=== PATIENT | female | born 2005 | race Caucasian/White ===

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

== ENCOUNTER → 2023-07-15 | Outpatient (CLI) | payer BC ==
[~2023-07-15] MED LIST changes: +DOXY-444 PO; +EMTR1TAB16 PO; +HYDR-643; +LAMO100T68; +METR-265 PO; +[UNRECOGNIZED DRUG - CODE] PO
== END ==
LOC: M RAD 17:29
PROVIDERS: ATTEND Physician Assistant
DX: M25.511 Pain in right shoulder (principal)

== ENCOUNTER → 2023-10-31 | Outpatient (REF) | payer BC | LOC: M LAB REF 17:54 | PROVIDERS: ATTEND Physician Assistant | DX: R30.0 Dysuria (principal) ==

== ENCOUNTER 2024-08-14 18:22 | Emergency (ER) | payer BC ==
[~2024-08-14] VITALS: Ht 157.5 cm; Wt 65.8 kg
[~2024-08-14 18:22] MED LIST changes: +DOXY-440 PO; -DOXY-444 PO; +ONDA-282 PO; -ONDA4TAB6 PO
[2024-08-14 18:27] VITALS: BP 111/58; TEMP 98.9; O2SAT 96
== END 2024-08-14 19:16 | disposition left against medical advice (07) ==
LOC: M ED 18:22
DX: Z53.21 Procedure and treatment not carried out due to patient leaving prior to being seen by health care provider (principal)

== ENCOUNTER → 2024-09-06 | Outpatient (CLI) | payer BC ==
[~2024-09-06] MED LIST changes: -CYPR4TA; +CYPR4TAB36
== END ==
LOC: M RAD 14:34
PROVIDERS: ATTEND Physician Assistant Medical
DX: R06.02 Shortness of breath (principal); R05.9 Cough, unspecified

== ENCOUNTER 2024-11-12 15:12 | Emergency (ER) | payer BC ==
[~2024-11-12] VITALS: Ht 157.5 cm; Wt 60.9 kg
[2024-11-12] MEDS ORDERED: LAMO150T3 (15:23)
[2024-11-12] MEDS ORDERED: DROS4TAB (15:23)
[2024-11-12] MEDS: IBUPROFEN 600MG TAB PO ONE (16:24)
[2024-11-12] MEDS ORDERED: KETOROLAC 30 MG/ML 1ML VIAL IM ONE (17:20)
[2024-11-12] MEDS: PERCOCET 5MG/325MG TAB PO ONE (17:35)
[2024-11-12 19:03] VITALS: BP 122/67; TEMP 98.8; O2SAT 98
== END 2024-11-12 19:28 | disposition home or self-care (01) ==
LOC: M ED 15:12
DX: S83.92XA Sprain of unspecified site of left knee, initial encounter (principal); X58.XXXA Exposure to other specified factors, initial encounter; Y92.9 Unspecified place or not applicable; Y93.89 Activity, other specified; Y99.9 Unspecified external cause status; Q79.60 Ehlers-Danlos syndrome, unspecified; G90.A Postural orthostatic tachycardia syndrome [POTS]; R51.9 Headache, unspecified; R56.9 Unspecified convulsions; Z88.0 Allergy status to penicillin; Z88.2 Allergy status to sulfonamides; Z88.5 Allergy status to narcotic agent; Z91.89 Other specified personal risk factors, not elsewhere classified

== ENCOUNTER 2025-02-17 09:20 | Emergency (ER) | payer BC ==
[~2025-02-17] VITALS: Ht 157.5 cm; Wt 65.9 kg
[~2025-02-17 09:20] MED LIST changes: +DROS4TAB
[2025-02-17] MEDS ORDERED: LO LTAB (09:28)
[2025-02-17] MEDS ORDERED: LORazepam 2 MG/ML 1ML VIAL As Ordered ONE (09:47)
[2025-02-17] MEDS: LORazepam 2 MG/ML 1ML VIAL IV STA (10:02)
[2025-02-17] MEDS: NS (Normal Saline) 0.9% 1,000 ML IV ONE (11:21)
[2025-02-17] MEDS: METOCLOPRAMIDE INJ 10MG/2ML VIAL IV ONE (11:22)
[2025-02-17] MEDS: diphenhydrAMINE 50MG/ML VIAL IV ONE (11:22)
[2025-02-17] MEDS: KETOROLAC 30 MG/ML 1ML VIAL IV ONE (11:24)
[2025-02-17 13:57] VITALS: BP 100/59; TEMP 98.5; O2SAT 99
== END 2025-02-17 14:08 | disposition home or self-care (01) ==
LOC: M ED 09:20
DX: R56.9 Unspecified convulsions (principal); Q79.60 Ehlers-Danlos syndrome, unspecified; G90.A Postural orthostatic tachycardia syndrome [POTS]; Z79.899 Other long term (current) drug therapy; Z88.0 Allergy status to penicillin; Z88.2 Allergy status to sulfonamides; Z88.5 Allergy status to narcotic agent; Z91.89 Other specified personal risk factors, not elsewhere classified
CPT/HCPCS: 80047; 87486; 87581; 87633; 87798; 96361; 96374; 96375; 99284; J1200; J1885; J2060; J2765